=== PATIENT | male | born 1975 | race African-American/Black ===

== ENCOUNTER 2017-10-02 10:31 | Emergency (ER) | payer MEDICAID ==
[~2017-10-02] VITALS: Ht 185.4 cm; Wt 93.9 kg
[2017-10-02] MEDS ORDERED: NKM (10:39)
[2017-10-02 10:43] VITALS: BP 122/77
[2017-10-02] MEDS ORDERED: Albuterol ud Inhalation HHN ONE (10:45)
[2017-10-02] MEDS ORDERED: Ipratropium 0.02% Inh Soln 2.5ml UD HHN ONE (10:45)
--- NOTE | 2017-10-02 11:35 | Emergency Room Report ---
History of Present Illness General Chief Complaint: Dyspnea/Respdistress Source: Patient Present Illness HPI Patient states that he has had congestion and cold like symptoms for the past week. Patient does have a history of respiratory infection induced bronchospasm and wheezing. He complains of feeling of tightness and shortness of breath. He denies fever or chills. He denies sputum production. He denies chest pain. He has no other complaints. Allergies: Coded Allergies: Cultivated Oat Pollen (Verified Allergy, Unknown, 10/02/17) Patient History Past Medical History: see triage record, asthma Social History: Reports: alcohol use; Denies: smoking, drug use Reviewed Nursing Documentation: PMH: Agreed; PSxH: Agreed Nursing Documentation-PMH Past Medical History: No History, Except For Hx Asthma: Yes Review of Systems All Other Systems: negative except mentioned in HPI Physical Exam Vital Signs Date Time Temp Pulse Resp B/P (MAP) Pulse Ox O2 Delivery O2 Flow Rate FiO2 10/02/17 10:35 99.4 103 22 122/77 92 Room Air 99.3 10/02/17 11:14 21 Sp02 EP Interpretation: reviewed, normal General Appearance: no apparent distress, alert, GCS 15, non-toxic Head: normocephalic, atraumatic Eyes: bilateral eye normal inspection, bilateral eye PERRL ENT: hearing grossly normal, normal pharynx, no angioedema, normal voice Neck: full range of motion, supple/symm/no masses Respiratory: chest non-tender, lungs clear, normal breath sounds, no respiratory distress, no retraction, no accessory muscle use, speaking full sentences Cardiovascular #1: regular rate, rhythm, no edema Gastrointestinal: normal bowel sounds, non tender, soft, non-distended, no guarding, no rebound Rectal: deferred Musculoskeletal: back normal, gait/station normal, normal range of motion, non- tender Neurologic: alert, oriented x3, responsive, motor strength/tone normal, sensory intact, speech normal Psychiatric: judgement/insight normal, memory normal, mood/affect normal, no suicidal/homicidal ideation Skin: normal color, no rash, warm/dry, well hydrated Medical Decision Making Diagnostic Impression: Primary Impression: URI (upper respiratory infection) Additional Impression: Asthma exacerbation ER Course This patient has a clinical presentation consistent with asthma exacerbation. Patient has a history of asthma and has wheezing on physical exam. The patient was given albuterol and Atrovent nebulizer treatments. The patient was also given prednisone orally. The patient had significant improvement in subjective shortness of breath. The patient's lung exam improved significantly. I will also treat the patient with a course of antibiotics as this has been shown to improve the course of an asthma exacerbation. The patient was given close return precautions and followup instructions. Last Vital Signs Date Time Temp Pulse Resp B/P (MAP) Pulse Ox O2 Delivery O2 Flow Rate FiO2 10/02/17 11:14 100 20 Room Air 10/02/17 11:14 96 21 10/02/17 10:43 99.3 122/77 99.3 Status: improved Disposition: HOME, SELF-CARE Condition: Improved MINERVA JOSHI D.O. October 02, 2017 11:35
[2017-10-02] MEDS ORDERED: PREDNISONE20 MG ORAL (11:57)
[2017-10-02] MEDS ORDERED: ZITHROMAX250 MG ORAL (11:57)
[2017-10-02] MEDS ORDERED: ALBUTEROL SULF8.5 GM INH (11:57)
[2017-10-02] MEDS ORDERED: Acetaminophen 500mg (ES) tab ORAL ONE (12:15)
[2017-10-02 12:33] VITALS: BP 126/68
[2017-10-02 13:45] VITALS: BP 112/57
--- NOTE | 2017-10-02 13:54 | Diagnostic Imaging Report ---
Indication: Cough Comparison: None 2 views of the chest obtained. Findings: Cardiomediastinal silhouette and pulmonary vascularity are within normal limits for age. Suggestion of mild bronchial wall thickening in the perihilar regions. The diaphragmatic contour is smooth and costophrenic angles are sharp. No pleural effusions are identified. The bones are unremarkable. Impression: Query bronchitis. No evidence of pneumonia or other acute process
[2017-10-02 13:57] VITALS: BP 112/57
== END 2017-10-02 13:59 | disposition home or self-care (01) ==
LOC: EMR 11:50
DX: J06.9 Acute upper respiratory infection, unspecified (principal); J45.901 Unspecified asthma with (acute) exacerbation
CPT/HCPCS: 71046; 94640; 94664; 99283; J7512